=== PATIENT | male | born 1960 | race Caucasian/White ===

== ENCOUNTER 2016-08-12 15:31 | Emergency (ER) | payer MEDICAID ==
[~2016-08-12] VITALS: Ht 170.2 cm; Wt 70.3 kg
[2016-08-12 15:36] VITALS: BP 142/75
--- NOTE | 2016-08-12 15:54 | NUR ---
GOLDEN [facility] AT BS.
== END 2016-08-12 16:29 | disposition home or self-care (01) ==
LOC: ER 15:32
DX: J20.9 Acute bronchitis, unspecified (principal); J44.1 Chronic obstructive pulmonary disease with (acute) exacerbation; I10 Essential (primary) hypertension; F17.200 Nicotine dependence, unspecified, uncomplicated
CPT/HCPCS: 71010-TC; A4606; Z7610